=== PATIENT | male | born 1930 | race Caucasian/White ===

== ENCOUNTER 2017-02-21 10:27 | Emergency (ER) | payer MEDICARE ==
[2017-02-21 10:46] VITALS: BP 134/78
--- NOTE | 2017-02-21 11:37 | UC ---
Huong Burch Edward, scribed for Kavita Farnsworth MD on 02/21/17 at 1119 . Lower Extremity/Ankle HPI - HPI Summary HPI Summary: 86 y/o male presents to [facility] c/o L foot pain starting yesterday afternoon. The pain is located at the top of the foot. Patient states that the pain has improved today. The patient had difficulty walking yesterday. Denies trauma to the foot or increase in activity. Patient cut his toe nails yesterday and the pain started hours later. Associated sx: L pedal edema and erythema. PMHx gout - last episode within the last year, responded well to colchicine. Recently has had PE in [place] with labs. Reports normal renal function and thinks that uric acid level was normal. 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 Better today Alleviating Factor(s): Rest - Risk Factors Gout Risk Factors: Age Over 40, Male DVT Risk Factors: Negative Septic Arthritis Risk Factor: Negative - Allergies/Home Medications Allergies/Adverse Reactions: Allergies Allergy/AdvReac Type Severity Reaction Status Date / Time No Known Allergies Allergy Verified 01/11/13 15:22 PMH/Surg Hx/FS Hx/Imm Hx - Additional Past Medical History Additional PMH: Positive: gout Previously Healthy: Yes Endocrine History: Hypothyroidism - Surgical History Surgical History: None - Family History Known Family History: Positive: Cardiac Disease - Father and brother - [place], Other - Arthritis - Social 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, 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 [place] Lives: With Family Alcohol Use: Weekly Substance Use Type: None Smoking Status (MU): Never Smoked Tobacco Review of Systems Constitutional: Negative Skin: Other - Erythema @ L foot Eyes: Negative ENT: Negative Respiratory: Negative Cardiovascular: Other - takes a statin to lower risk Gastrointestinal: Negative Genitourinary: Negative Motor: Negative Neurovascular: Negative Musculoskeletal: Arthralgia - L foot pain, Edema - L foot Neurological: Negative Psychological: Negative All Other Systems Reviewed And Are Negative: Yes Physical Exam Triage Information Reviewed: Yes Appearance: Well-Appearing, Pain Distress - mild Vital Signs: Initial Vital Signs Temp 98 F 02/21/17 10:33 Pulse 72 02/21/17 10:33 Resp 16 02/21/17 10:33 BP 134/78 02/21/17 10:33 Pulse Ox 100 02/21/17 10:33 Vital Signs Reviewed: Yes Cardiovascular: Positive: RRR, No Murmur Musculoskeletal: Positive: Strength Intact, ROM Intact - ankle, Other: - left foot with area of warmth, erythema and swelling in the midfoot, over appox 5 cm area. Tenderness to deep palpation and to movement of the subtalar joint. Nails clipped, no evidence of cellulitis Neurological: Positive: Alert Psychological Exam: Normal Skin Exam: Other - erythema left midfoot. Lower Extremity Course/Dx - Course Course Of Treatment: colchicine for suspected gout. - Differential Dx/Diagnosis Differential Diagnosis/HQI/PQRI: Cellulitis, Gout, Sprain, Strain, Other - contusion Provider Diagnoses: gout left mid foot. Discharge - Discharge Plan Condition: Stable Disposition: HOME Prescriptions: Colchicine [Mitigare] 0.6 mg PO BID #2 cap Patient Education Materials: Gout (ED) Additional Instructions: The results of the lab testing will be available tomorrow, and you can call for the results in the afternoon. If the uric acid is normal, it is possible that this is pseudogout (caused by calcium crystals instead of uric acid). You can use acetaminophen for additional pain control, using 650mg three times daily in addition to the colchicine which was prescribed. The documentation as recorded by the Huong alejo Edward accurately reflects the service I personally performed and the decisions made by me, Kavita Farnsworth MD.
[2017-02-21 15:01] LABS: Hematocrit 45 % (42-52); Hemoglobin 15.3 g/dl (14.0-18.0); Mean Corpuscular HGB Conc 34 g/dl (31-36); Mean Corpuscular Hemoglobin 33 pg (27-31); Mean Corpuscular Volume 96 fL (80-94); Mean Platelet Volume 7 um3 (7.4-10.4); Red Blood Count 4.71 10^6/ul (4.0-5.4); Red Cell Distribution Width 14 % (10.5-15); White Blood Count 9.1 10^3/ul (3.5-10.8)
[2017-02-21 15:14] LABS: BUN/Creatinine Ratio 11.8 (8-20); C Reactive Protein 10.61 mg/L (< 5.00); Calcium 9.3 mg/dL (8.6-10.3); EGFR African American 74.4 (>60); EGFR Non-African American 57.8 (>60)
[2017-02-21 15:22] LABS: Potassium 4.8 mmol/L (3.5-5.0)
--- NOTE | 2017-02-22 08:05 | ED ---
Progress - Progress Note Progress Note: no acute changes on lab, if worse go to ER. Course/Dx - Course Course Of Treatment: colchicine for suspected gout. - Diagnoses Provider Diagnoses: Foot pain
== END 2017-02-21 11:55 | disposition home or self-care (01) ==
LOC: UCEAST 10:27
DX: M10.9 Gout, unspecified (principal); Z86.711 Personal history of pulmonary embolism
CPT/HCPCS: 36415; 80048; 84550; 85025; 86140; 99212; G0463

== ENCOUNTER 2018-04-18 11:25 | Emergency (ER) | payer MEDICARE, BC ==
[2018-04-18 12:04] VITALS: BP 150/81
--- NOTE | 2018-04-18 13:06 | UC ---
Lower Extremity/Ankle HPI - HPI Summary HPI Summary: 2 day hx pain R foot/ankle. no injury, has had gout in past and feels same. ate seafood last pm has taken no meds thus far - History of Current Complaint Chief Complaint: UCLowerExtremity Stated Complaint: FOOT PAIN Time Seen by Provider: 04/18/18 12:44 Hx Obtained From: Patient Onset/Duration: Gradual Onset Severity Initially: Mild Severity Currently: Moderate Pain Intensity: 6 Aggravating Factor(s): Ambulation Alleviating Factor(s): Rest Able to Bear Weight: Yes - Risk Factors Gout Risk Factors: Age Over 40, Male, Hyperlipidemia DVT Risk Factors: Negative - Allergies/Home Medications Allergies/Adverse Reactions: Allergies Allergy/AdvReac Type Severity Reaction Status Date / Time No Known Allergies Allergy Verified 04/18/18 12:04 Home Medications: Home Medications Atorvastatin* [Lipitor 10 MG*] 1 tab PO DAILY 04/18/18 [History Confirmed ] PMH/Surg Hx/FS Hx/Imm Hx Previously Healthy: Yes Endocrine History: Hypothyroidism - Surgical History Surgical History: None - Family History Known Family History: Positive: Cardiac Disease - Father and brother - [place], Other - Arthritis - Social History Occupation: Employed Part-time Lives: With Family Alcohol Use: Occasionally Substance Use Type: None Smoking Status (MU): Never Smoked Tobacco Review of Systems Constitutional: Negative Skin: Negative Respiratory: Negative Cardiovascular: Negative Musculoskeletal: Other: - erythema , swelling and pain R ankle and foot Neurological: Negative Psychological: Negative Is Patient Immunocompromised?: No All Other Systems Reviewed And Are Negative: Yes Physical Exam Triage Information Reviewed: Yes Appearance: Well-Appearing, No Pain Distress, Well-Nourished Vital Signs: Initial Vital Signs Temp 98.4 F 04/18/18 12:01 Pulse 65 04/18/18 12:01 Resp 12 04/18/18 12:01 BP 150/81 04/18/18 12:01 Pulse Ox 99 04/18/18 12:01 Vital Signs Reviewed: Yes Respiratory Exam: Normal Cardiovascular Exam: Normal Musculoskeletal: Positive: ROM Intact, Strength Limited @, Other: - erythema, swelling tenderness R MTP and ankle Psychological Exam: Normal Skin Exam: Normal Lower Extremity Course/Dx - Differential Dx/Diagnosis Differential Diagnosis/HQI/PQRI: Cellulitis, DVT Provider Diagnoses: Gout Discharge - Sign-Out/Discharge Documenting (check all that apply): Patient Departure All imaging exams completed and their final reports reviewed: No Studies - Discharge Plan Condition: Stable Disposition: HOME Prescriptions: Colchicine [Mitigare] 0.6 mg PO BID #2 cap Patient Education Materials: Gout (ED) Referrals: No Primary Care Phys,NOPCP [Primary Care Provider] - Additional Instructions: elevate foot, apply ice packs start colchicine as prescribed return if symptoms worsen - Billing Disposition and Condition Condition: STABLE Disposition: Home
== END 2018-04-18 13:15 | disposition home or self-care (01) ==
LOC: UCEAST 11:25
DX: M10.071 Idiopathic gout, right ankle and foot (principal); E78.5 Hyperlipidemia, unspecified
CPT/HCPCS: 99212; G0463